=== PATIENT | male | born 1960 | race Caucasian/White ===

== ENCOUNTER 2017-02-27 05:43 | Emergency (ER) | payer MEDICAID, SELFPAY ==
[2017-02-27 05:47] VITALS: BP 129/86; PULSE 114; RESP 16; TEMP 37.1; O2SAT 98; BMI 24.9
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
== END 2017-02-27 08:19 | disposition home or self-care (01) ==
PROVIDERS: Emergency Provider Emergency Medicine; Family Provider Family Medicine
DX: R07.81 Pleurodynia (principal); S22.41XS Multiple fractures of ribs, right side, sequela; Z88.2 Allergy status to sulfonamides
CPT/HCPCS: 71046; 99283

== ENCOUNTER → 2017-06-08 12:08 | Outpatient (CLI) | payer MEDICAID, SELFPAY ==
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
== END ==
PROVIDERS: PCP Physician Assistant; Visit Provider Physician Assistant
DX: S42.001A Fracture of unspecified part of right clavicle, initial encounter for closed fracture (principal); M54.2 Cervicalgia
CPT/HCPCS: 72050; 73000

== ENCOUNTER → 2017-07-10 13:46 | Outpatient (CLI) | payer MEDICAID, MEDICARE, SELFPAY ==
--- NOTE | 2017-07-10 13:49 | NVE_ITS ---
Venous Exam IMPRESSIONS 1. There is no evidence of significant Reflux. 2. Superficial vein thrombosis involving the left great saphenous vein Left lower extremity venous duplex evaluation. Doppler flow study including spectral analysis, color and ace scale imaging. Location: Vascular laboratory. Patient status: Outpatient. CRITICAL FINDINGS - [facility] - Read back and verified. - 07/10/17 - 1445 - SVT L GSV Tables: Venous flow and imaging: + + + + Location Overall Flow properties + + + + Left common femoral Patent Normal phasicity; spontaneous; normal augmentation; compressible + + + + Left saphenofemoral Patent Compressible junction + + + + Left profunda femoral Patent Compressible + + + + Left femoral Patent Normal phasicity; spontaneous; normal augmentation; compressible + + + + Left greater saphenous Partially occluded Diminished phasicity; not spontaneous; diminished augmentation; partially compressible + + + + Left popliteal Patent Normal phasicity; spontaneous; normal augmentation; compressible + + + + Left posterior tibial Patent Compressible + + + + Left peroneal Patent Compressible + + + + Left gastrocnemius Patent Compressible + + + + Left soleal Patent Compressible + + + + (Report amended ) Electronically signed by: Tim Carmona [id number]
--- NOTE | 2017-07-10 13:49 | CI_ITS ---
Cerebrovascular Exam Indications: 433.10 Occlusion/stenosis of carotid artery without cerebral infarction. IMPRESSIONS 1. The bilateral vertebral arteries are patent with normal antegrade flow. 2. Study suggests 20-49% stenosis involving the right internal carotid artery. 3. Study suggests less than 20% stenosis involving the left internal carotid artery. History: Coronary artery disease. Risk factors: Hypertension. Hyperlipidemia. Carotid duplex study. Complete study and Doppler flow study including spectral analysis, color and ace scale imaging. Height: Height: 167.6cm. Height: 66in. Weight: Weight: 64.9kg. Weight: 142.7lb. Body mass index: BMI: 23.1kg/m^2. Body surface area: BSA: 1.74m^2. Location: Vascular laboratory. Patient status: Outpatient. Tables: Arterial flow: + +--------+--------+ Location V sys V ed + +--------+--------+ Right CCA - proximal 80.1cm/s 20.4cm/s + +--------+--------+ Right CCA - distal 70.7cm/s 23.6cm/s + +--------+--------+ Right ECA 65.2cm/s -------- + +--------+--------+ Right ICA - proximal 68.4cm/s 16.5cm/s + +--------+--------+ Right ICA - mid 59.7cm/s 20.4cm/s + +--------+--------+ Right ICA - distal 66.8cm/s 24.4cm/s + +--------+--------+ Right vertebral 47.9cm/s -------- + +--------+--------+ Left CCA - proximal 73.9cm/s 18.1cm/s + +--------+--------+ Left CCA - distal 60.5cm/s 15.7cm/s + +--------+--------+ Left ECA 80.1cm/s -------- + +--------+--------+ Left ICA - proximal 53.4cm/s 15.7cm/s + +--------+--------+ Left ICA - mid 66.6cm/s 27cm/s + +--------+--------+ Left ICA - distal 67.3cm/s 24.5cm/s + +--------+--------+ Left vertebral 33.3cm/s -------- + +--------+--------+ Velocity ratios: + + + + + + Right, V sys Right, V ed Left, V sys Left, V ed + + + + + + Max ICA/dist CCA 0.97 1.03 1.11 1.72 + + + + + + (Report amended ) Electronically signed by: Tim Carmona [id number]
== END ==
PROVIDERS: Family Provider Family Medicine; PCP Physician Assistant; Visit Provider Physician Assistant
DX: I65.23 Occlusion and stenosis of bilateral carotid arteries (principal); M79.605 Pain in left leg; M79.89 Other specified soft tissue disorders
CPT/HCPCS: 93880; 93971

== ENCOUNTER → 2020-08-02 16:41 | Outpatient (CLI) | payer MEDICARE, MEDICAID, SELFPAY ==
[2020-08-02 16:58] LABS: Basophils # 0.1 K/mm3 (0-0.2); Basophils % 1.1 % (0.1-2.0); Eosinophils # 0.1 K/mm3 (0.0-0.4); Eosinophils % 2.1 % (0.1-12.0); Hematocrit 42.9 % (42.0-52.0); Lymphocytes # 1.9 K/mm3 (0.7-4.5); Lymphocytes % 27.2 % (10-50); Mean Corpuscular HGB Conc 32.7 g/dL (31.8-35.4); Mean Corpuscular Hemoglobin 28.2 pg (27.0-31.2); Mean Corpuscular Volume 86.5 fl (80-94); Mean Platelet Volume 7.1 fl (7.4-10.4); Monocytes # 0.5 K/mm3 (0.1-1.0); Monocytes % 7.1 % (1.7-9.3); Neutrophils # 4.3 K/mm3 (1.8-7.8); Neutrophils % 62.6 % (37.0-80.0); Platelet Count 193 K/mm3 (142-424); Red Blood Count 4.96 M/mm3 (4.60-6.20); Red Cell Distribution Width 12.8 % (11.5-17.5); White Blood Count 6.8 K/mm3 (4.8-10.8)
[2020-08-02 17:24] LABS: Alanine Aminotransferase 17 U/L (12-78); Albumin Level 4.7 g/dl (3.5-5.0); Albumin/Globulin Ratio 1.7 (1.1-1.8); Alkaline Phosphatase 64 U/L (38-126); Anion Gap 11.9 mEq/L (5-15); Aspartate Amino Transferase 27 U/L (17-59); Bilirubin,Total 0.5 mg/dl (0.2-1.3); Blood Urea Nitrogen 9 mg/dl (9-20); Calcium 9.5 mg/dl (8.4-10.2); Carbon Dioxide 29 mmol/L (22.0-30.0); Chloride 103 mmol/L (98-107); Cholesterol 266 mg/dl (140-200); Estimated Glomerular Filt Rate 77 ml/min (>60); GFR (African American) 93 ML/MIN (>60); Globulin 2.8 g/dL (1.3-3.2); Glucose 94 mg/dl (74-100); HDL Cholesterol 53 mg/dl (40-60); Potassium 4.9 mmoL/L (3.5-5.1); Sodium 139 mmol/L (136-145); Total Protein,Serum 7.5 g/dl (6.3-8.2); Triglycerides 178 mg/dl (30-150); VLDL Cholesterol 36 mg/dL (0-40)
[2020-08-02 17:35] LABS: Direct LDL Cholesterol 164.91 mg/dL (100-129)
[2020-08-02 17:54] LABS: Thyroid Stimulating Hormone 3.52 uIU/mL (0.465-4.68)
== END ==
PROVIDERS: Visit Provider Internal Medicine Adolescent Medicine
DX: I25.10 Atherosclerotic heart disease of native coronary artery without angina pectoris (principal); Z79.899 Other long term (current) drug therapy
CPT/HCPCS: 36415; 80053; 80061; 84443; 85025